=== PATIENT | male | born 1995 | race Caucasian/White ===

== ENCOUNTER 2018-07-23 21:09 | Emergency (ER) | payer OTHER ==
--- NOTE | 2018-07-23 22:07 | EDPHY ---
General Time Seen by Provider: 07/23/18 21:21 Narrative: CHIEF COMPLAINT: cut my knee HISTORY OF PRESENT ILLNESS: Patient presents by POV with complaints of cut to right knee. He states that he was walking at home, when he tripped and fell onto a TV screen, cutting his right knee. He reports this was accidental and happened just prior to arrival. Minimal tenderness of the laceration. Bleeding stopped with simple pressure. He has no bony tenderness or any pain with ambulation. No numbness or tingling distally. No bleeding disorders. No anticoagulants. No injury elsewhere. Tetanus up-to-date less than 7 years. TIME OF INJURY: Just prior to arrival TETANUS STATUS: Less than 70 MEDICAL/SURGICAL/SOCIAL HISTORY: Uncomplicated. Tonsillectomy. Nonsmoker REVIEW OF SYSTEMS: Ten systems reviewed and are negative unless otherwise noted in the HPI EXAMINATION General Appearance: Alert, no distress Head: normocephalic, atraumatic Cardiovascular: DP pulses are symmetric 2+. There is brisk cap refill good signs of perfusion of the right lower extremity. Neurological: A&O, light sensory symmetric, ankle and great toe strength symmetric Skin: Warm and dry, no rash. 5 cm, jagged and irregular shape laceration to the right anterior gee, distal to the knee. There is an adjacent area of 1 subcutaneously cm tissue avulsion just lateral to this. There is soft tissue foreign body visualized and he has removed. No pulsatile bleeding. No injury to the deep tissue structures. Extremities: No bony tenderness to the right lower extremity. There is tenderness to the superficial wound. Full range of motion with soft compartments of the right lower extremity. DIFFERENTIAL DIAGNOSES: Including but not limited to laceration, laceration complication, laceration foreign body, laceration with deep tissue injury MDM: 9:20 p.m. Laceration to the right knee with adjacent tissue avulsion. There is minimal foreign body visual that was easily removed. There is no undermining. He has no bony tenderness of the right knee. No evidence of compartment syndrome. He is neuro intact distally. His Tdap is up-to-date. I have administered anesthesia. We will copiously irrigate and re-evaluate. 10:05 p.m. Wound has been copiously irrigated I have re-evaluated with sterile glove. I do not appreciate any foreign body and the entirety of the wound wound bed is visualized without difficulty. Do not feel he warranted any x-ray, thus I proceed with wound closure. Excellent approximation of the wound borders with 1 cm excisional debridement. I have discussed wound care. We discussed ED precautions. We discussed returning here in 10-14 days for suture removal. I have answered all his questions and he is discharged home stable condition. PROCEDURE: Laceration repair Consent: Verbal Location: Right knee Length of repair: 5 cm and jagged Complexity: Complex Layer involvement: 2 layer Anesthesia: Local. 0.5% Marcaine with epinephrine, 10 mL Irrigation: Extensive Debridement: 1 cm Procedure description: Following good anesthesia, the wound was copiously irrigated. Wound bed was explored with a sterile glove, and there is no foreign body noted. There was an adjacent injury, just lateral to this that involved a small area of tissue avulsion that is irreparable. No injury to the underlying patellar tendon. Wound borders were approximated well with good hemostasis. Tolerated well without complication. Suture/Staple material: Subcutaneous layer: 4-0 Vicryl, 6 [id number] sutures cutaneous layer: 4-0 Prolene, 11 simple interrupted sutures Wound care: Routine as discussed Suture/Staple removal: 10-14 Days SUPERVISION: This patient was independently evaluated without direct involvement of or examination by the attending physician. ED Precautions: Worsening pain. Erythema, edema, cyanosis, pallor, paresthesia or anesthesia. - History Smoking Status: Never smoked - Objective Vital Signs: Initial Vital Signs Temperature (C) 98.1 F 07/23/18 21:09 Heart Rate 108 H 07/23/18 21:09 Respiratory Rate 18 07/23/18 21:09 Blood Pressure 148/73 H 07/23/18 21:09 O2 Sat (%) 95 07/23/18 21:09 O2 Delivery Mode Room Air Allergies/Adverse Reactions: No Known Allergies Allergy (Unverified 07/23/18 21:13) Home Medications: Medication Instructions Recorded NK [No Known Home Meds] 07/23/18 Departure - Departure Disposition: Home, Routine, Self-Care Clinical Impression: Laceration of right knee Qualifiers: Encounter type: initial encounter Qualified Code(s): S81.011A - Laceration without foreign body, right knee, initial encounter Avulsion of soft tissue of right lower leg Qualifiers: Encounter type: initial encounter Qualified Code(s): S81.801A - Unspecified open wound, right lower leg, initial encounter Condition: Good Instructions: Care For Your Stitches (ED), Laceration (ED), Skin Avulsion (ED) Additional Instructions: 1. Thin layer of bacitracin once daily for the next 2 days 2. Keep the wound covered while showering for the next 3 days 3. Daily wound care as discussed 4. Return here for suture removal in 10-14 days 5. Return here for signs of infection as discussed including warmth, redness, fever, drainage from the site 6. return here for increasing pain surrounding the laceration 7. Do not submerge the wound in any water, hot tub, swimming pool until sutures removed Referrals: Physician,Emergency Dept, [Medical Doctor] - As per Instructions (10-14 days for suture removal) KAREEM Grider,. [Clinic] - As per Instructions
[2018-07-23 22:15] VITALS: BP 119/70
== END 2018-07-23 22:14 | disposition home or self-care (01) ==
PROC: 0HQKXZZ Repair Right Lower Leg Skin, External Approach (ICD-10-PCS; principal; 2018-07-23)
DX: S81.011A Laceration without foreign body, right knee, initial encounter (principal); W01.198A Fall on same level from slipping, tripping and stumbling with subsequent striking against other object, initial encounter; Y93.01 Activity, walking, marching and hiking; Y92.009 Unspecified place in unspecified non-institutional (private) residence as the place of occurrence of the external cause; Y99.9 Unspecified external cause status